=== PATIENT | male | born 1930 | race Hispanic/Latino ===

== ENCOUNTER 2017-06-25 03:42 | Inpatient (IN) | payer MEDICARE ==
[~2017-06-25 03:42] MED LIST: NACL 0.9% 1000 ML 1,000 ML ONE; TYLENOL PR ONE
[2017-06-25] MEDS ORDERED: ZOSYN/NS 4.5GM/100ML 4.5 GM/100 ML VIAL IV ONE (04:00)
[2017-06-25] MEDS ORDERED: TYLENOL PR ONE ×2 (04:02→04:03)
[2017-06-25] MEDS ORDERED: NACL 0.9% 1000 ML 1,000 ML IV ONE (04:03)
[2017-06-25] MEDS ORDERED: DIPRIVAN 10 MG/ML 1,000 MG/100 ML BOTTLE IV ONE (04:05)
[2017-06-25] MEDS ORDERED: NACL 0.9% 500 ML 500 ML IV ONE (04:11)
[2017-06-25] MEDS ORDERED: AMIDATE IV ONE (04:20)
[2017-06-25] MEDS ORDERED: QUELICIN IV ONE (04:21)
[2017-06-25] MEDS ORDERED: NACL 0.9% 1000 ML 2,000 ML IV ONE ×3 (04:22→05:34)
[2017-06-25] MEDS ORDERED: VASELINE LIP THERAPY TP PRN (04:30)
[2017-06-25] MEDS ORDERED: ARTIFICIAL TEARS OPHTH OINT OU PRN (04:30)
--- NOTE | 2017-06-25 04:41 | Emergency Department Report ---
ED Shortness of Breath HPI - General Chief Complaint: Dyspnea/Respdistress Stated Complaint: ROSCOE,RESPIRATORY Time Seen by Provider: 06/25/17 04:33 Source: EMS Mode of arrival: Stretcher Limitations: Altered Mental Status, Physical Limitation - History of Present Illness Initial Comments: Patient is a 87 years old male usp patient brought by EMS in no respiratory distress that is started this morning nursing staff report. Initial respiratory rate was 55 with an oxygen saturation of 82%. Patient is febrile 101.6 initial blood pressure or 74/42. Patient immediately intubated in the ER by me and IV fluids started empiric antibiotic Zosyn and vancomycin is also started. Large amount of gastric contents was suctioned before the ET tube and difficult time is also aspirated after the ET tube placement. MD Complaint: shortness of breath - Related Data Home Medications Medication Instructions Recorded Confirmed Last Taken Acetaminophen 325 mg PO Q4H PRN 06/25/17 06/25/17 Unknown Aspirin BABY CHEW TAB 81 mg PO DAILY 06/25/17 06/25/17 Unknown Atorvastatin Calcium 20 mg PO HS 06/25/17 06/25/17 Unknown Calcium 250-Vit D3 125 Tablet 1 tab PO BID 06/25/17 06/25/17 Unknown Finasteride 5 mg PO DAILY 06/25/17 06/25/17 Unknown HCTZ 25 mg PO DAILY 06/25/17 06/25/17 Unknown Nitroglycerin 0.4 mg SL Q5M PRN 06/25/17 06/25/17 Unknown Omeprazole 20 mg PO DAILY 06/25/17 06/25/17 Unknown Potassium Chloride 15 ml PO DAILY 06/25/17 06/25/17 Unknown Senno 8.6 mg PO HS 06/25/17 06/25/17 Unknown Tamsulosin HCl 0.4 mg PO BID 06/25/17 06/25/17 Unknown Allergies Allergy/AdvReac Type Severity Reaction Status Date / Time No Known Allergies Allergy Unverified 06/25/17 03:59 ED Review of Systems ROS: Stated complaint: ROSCOE,RESPIRATORY Other details as noted in HPI Comment: Unobtainable due to pts medical conditions ED Past Medical Hx - Past Medical History Previous Medical History?: Yes Hx Hypertension: Yes Hx GERD: Yes Hx Liver Disease: Yes (Hep. C) Hx COPD: Yes Hx Dementia: Yes Additional medical history: Benign prostatic Hyperplasia with lower UTI symptoms , Hep. C, Coronary Artery Disease - Medications Home Medications: Home Medications Medication Instructions Recorded Confirmed Last Taken Type Acetaminophen 325 mg PO Q4H PRN 06/25/17 06/25/17 Unknown History Aspirin BABY CHEW TAB 81 mg PO DAILY 06/25/17 06/25/17 Unknown History Atorvastatin Calcium 20 mg PO HS 06/25/17 06/25/17 Unknown History Calcium 250-Vit D3 125 Tablet 1 tab PO BID 06/25/17 06/25/17 Unknown History Finasteride 5 mg PO DAILY 06/25/17 06/25/17 Unknown History HCTZ 25 mg PO DAILY 06/25/17 06/25/17 Unknown History Nitroglycerin 0.4 mg SL Q5M PRN 06/25/17 06/25/17 Unknown History Omeprazole 20 mg PO DAILY 06/25/17 06/25/17 Unknown History Potassium Chloride 15 ml PO DAILY 06/25/17 06/25/17 Unknown History Senno 8.6 mg PO HS 06/25/17 06/25/17 Unknown History Tamsulosin HCl 0.4 mg PO BID 06/25/17 06/25/17 Unknown History ED Physical Exam - General Limitations: Altered Mental Status, Physical Limitation General appearance: obtunded, in distress - Head Head exam: Present: atraumatic, normocephalic - ENT ENT exam: Present: mucous membranes dry - Neck Neck exam: Present: normal inspection. Absent: tenderness, meningismus - Respiratory Respiratory exam: Present: respiratory distress, rales, decreased breath sounds. Absent: stridor, prolonged expiratory - Cardiovascular Cardiovascular Exam: Present: tachycardia - GI/Abdominal GI/Abdominal exam: Present: soft. Absent: distended, tenderness, guarding, rebound, rigid, mass, bruit, pulsatile mass - Extremities Exam Extremities exam: Present: normal inspection. Absent: normal capillary refill ( delayed capillary refill) - Back Exam Back exam: Present: normal inspection - Neurological Exam Neurological exam: Present: altered - Skin Skin exam: Present: dry, intact, cyanosis ED Course Vital Signs 06/25/17 06/25/17 06/25/17 03:32 03:45 03:46 Temperature 101.6 F H Temperature [ Intra-Procedure ] Temperature [ Post-Procedure] Temperature [ Pre-Procedure] Pulse Rate 124 H 122 H 117 H Pulse Rate [ Intra-Procedure ] Pulse Rate [ Post-Procedure] Pulse Rate [Pre -Procedure] Respiratory 57 H 50 H 46 H Rate Respiratory Rate [Intra- Procedure] Respiratory Rate [Post- Procedure] Respiratory Rate [Pre- Procedure] Blood Pressure 77/44 77/43 Blood Pressure [Intra- Procedure] Blood Pressure [Post-Procedure ] Blood Pressure [Pre-Procedure] O2 Sat by Pulse 89 86 92 Oximetry O2 Sat by Pulse Oximetry [ Intra-Procedure ] O2 Sat by Pulse Oximetry [Post -Procedure] O2 Sat by Pulse Oximetry [Pre- Procedure] 06/25/17 06/25/17 06/25/17 04:00 04:16 04:30 Temperature Temperature [ Intra-Procedure ] Temperature [ Post-Procedure] Temperature [ 101.6 F H Pre-Procedure] Pulse Rate 117 H 109 H 108 H Pulse Rate [ Intra-Procedure ] Pulse Rate [ Post-Procedure] Pulse Rate [Pre 108 H -Procedure] Respiratory 25 H 32 H 35 H Rate Respiratory Rate [Intra- Procedure] Respiratory Rate [Post- Procedure] Respiratory 35 H Rate [Pre- Procedure] Blood Pressure 90/55 67/43 85/47 Blood Pressure [Intra- Procedure] Blood Pressure [Post-Procedure ] Blood Pressure 85/47 [Pre-Procedure] O2 Sat by Pulse 95 95 93 Oximetry O2 Sat by Pulse Oximetry [ Intra-Procedure ] O2 Sat by Pulse Oximetry [Post -Procedure] O2 Sat by Pulse 93 Oximetry [Pre- Procedure] 06/25/17 06/25/17 06/25/17 04:35 04:37 04:45 Temperature Temperature [ 101.6 F H Intra-Procedure ] Temperature [ 101.6 F H Post-Procedure] Temperature [ 101.6 F H Pre-Procedure] Pulse Rate 115 H Pulse Rate [ 110 H Intra-Procedure ] Pulse Rate [ 115 H Post-Procedure] Pulse Rate [Pre 110 H -Procedure] Respiratory 29 H 36 H Rate Respiratory 29 H Rate [Intra- Procedure] Respiratory 36 H Rate [Post- Procedure] Respiratory 29 H Rate [Pre- Procedure] Blood Pressure 84/48 77/43 Blood Pressure 84/48 [Intra- Procedure] Blood Pressure 77/43 [Post-Procedure ] Blood Pressure 84/48 [Pre-Procedure] O2 Sat by Pulse 97 97 Oximetry O2 Sat by Pulse 97 Oximetry [ Intra-Procedure ] O2 Sat by Pulse 97 Oximetry [Post -Procedure] O2 Sat by Pulse 97 Oximetry [Pre- Procedure] 06/25/17 06/25/17 06/25/17 04:51 04:53 04:54 Temperature Temperature [ Intra-Procedure ] Temperature [ Post-Procedure] Temperature [ Pre-Procedure] Pulse Rate Pulse Rate [ Intra-Procedure ] Pulse Rate [ Post-Procedure] Pulse Rate [Pre -Procedure] Respiratory 50 H 50 H 50 H Rate Respiratory Rate [Intra- Procedure] Respiratory Rate [Post- Procedure] Respiratory Rate [Pre- Procedure] Blood Pressure Blood Pressure [Intra- Procedure] Blood Pressure [Post-Procedure ] Blood Pressure [Pre-Procedure] O2 Sat by Pulse Oximetry O2 Sat by Pulse Oximetry [ Intra-Procedure ] O2 Sat by Pulse Oximetry [Post -Procedure] O2 Sat by Pulse Oximetry [Pre- Procedure] 06/25/17 06/25/17 06/25/17 05:00 05:15 05:30 Temperature Temperature [ Intra-Procedure ] Temperature [ Post-Procedure] Temperature [ Pre-Procedure] Pulse Rate 111 H 106 H 107 H Pulse Rate [ Intra-Procedure ] Pulse Rate [ Post-Procedure] Pulse Rate [Pre -Procedure] Respiratory 36 H 35 H 35 H Rate Respiratory Rate [Intra- Procedure] Respiratory Rate [Post- Procedure] Respiratory Rate [Pre- Procedure] Blood Pressure 93/49 85/47 94/45 Blood Pressure [Intra- Procedure] Blood Pressure [Post-Procedure ] Blood Pressure [Pre-Procedure] O2 Sat by Pulse 96 85 91 Oximetry O2 Sat by Pulse Oximetry [ Intra-Procedure ] O2 Sat by Pulse Oximetry [Post -Procedure] O2 Sat by Pulse Oximetry [Pre- Procedure] 06/25/17 06/25/17 06/25/17 05:45 05:53 05:54 Temperature Temperature [ Intra-Procedure ] Temperature [ Post-Procedure] Temperature [ Pre-Procedure] Pulse Rate 107 H Pulse Rate [ Intra-Procedure ] Pulse Rate [ Post-Procedure] Pulse Rate [Pre -Procedure] Respiratory 35 H 34 H 34 H Rate Respiratory Rate [Intra- Procedure] Respiratory Rate [Post- Procedure] Respiratory Rate [Pre- Procedure] Blood Pressure 101/50 Blood Pressure [Intra- Procedure] Blood Pressure [Post-Procedure ] Blood Pressure [Pre-Procedure] O2 Sat by Pulse 92 Oximetry O2 Sat by Pulse Oximetry [ Intra-Procedure ] O2 Sat by Pulse Oximetry [Post -Procedure] O2 Sat by Pulse Oximetry [Pre- Procedure] 1206/25/17 06/25/17 06:00 06:15 06:57 Temperature Temperature [ Intra-Procedure ] Temperature [ Post-Procedure] Temperature [ Pre-Procedure] Pulse Rate 107 H 109 H 104 H Pulse Rate [ Intra-Procedure ] Pulse Rate [ Post-Procedure] Pulse Rate [Pre -Procedure] Respiratory 35 H 36 H 34 H Rate Respiratory Rate [Intra- Procedure] Respiratory Rate [Post- Procedure] Respiratory Rate [Pre- Procedure] Blood Pressure 104/55 104/55 104/55 Blood Pressure [Intra- Procedure] Blood Pressure [Post-Procedure ] Blood Pressure [Pre-Procedure] O2 Sat by Pulse 92 92 Oximetry O2 Sat by Pulse Oximetry [ Intra-Procedure ] O2 Sat by Pulse Oximetry [Post -Procedure] O2 Sat by Pulse Oximetry [Pre- Procedure] 06/25/17 06/25/17 06/25/17 07:01 07:15 07:30 Temperature Temperature [ Intra-Procedure ] Temperature [ Post-Procedure] Temperature [ Pre-Procedure] Pulse Rate 101 H 118 H 103 H Pulse Rate [ Intra-Procedure ] Pulse Rate [ Post-Procedure] Pulse Rate [Pre -Procedure] Respiratory 34 H 35 H 35 H Rate Respiratory Rate [Intra- Procedure] Respiratory Rate [Post- Procedure] Respiratory Rate [Pre- Procedure] Blood Pressure 79/42 109/55 75/43 Blood Pressure [Intra- Procedure] Blood Pressure [Post-Procedure ] Blood Pressure [Pre-Procedure] O2 Sat by Pulse 90 89 Oximetry O2 Sat by Pulse Oximetry [ Intra-Procedure ] O2 Sat by Pulse Oximetry [Post -Procedure] O2 Sat by Pulse Oximetry [Pre- Procedure] 06/25/17 06/25/17 06/25/17 07:45 08:01 08:15 Temperature Temperature [ Intra-Procedure ] Temperature [ Post-Procedure] Temperature [ Pre-Procedure] Pulse Rate 105 H 103 H 105 H Pulse Rate [ Intra-Procedure ] Pulse Rate [ Post-Procedure] Pulse Rate [Pre -Procedure] Respiratory 35 H 34 H 35 H Rate Respiratory Rate [Intra- Procedure] Respiratory Rate [Post- Procedure] Respiratory Rate [Pre- Procedure] Blood Pressure 94/54 90/34 82/49 Blood Pressure [Intra- Procedure] Blood Pressure [Post-Procedure ] Blood Pressure [Pre-Procedure] O2 Sat by Pulse 89 89 87 Oximetry O2 Sat by Pulse Oximetry [ Intra-Procedure ] O2 Sat by Pulse Oximetry [Post -Procedure] O2 Sat by Pulse Oximetry [Pre- Procedure] 06/25/17 06/25/17 06/25/17 08:30 08:45 11:30 Temperature 98.0 F Temperature [ Intra-Procedure ] Temperature [ Post-Procedure] Temperature [ Pre-Procedure] Pulse Rate 103 H Pulse Rate [ Intra-Procedure ] Pulse Rate [ Post-Procedure] Pulse Rate [Pre -Procedure] Respiratory 34 H Rate Respiratory Rate [Intra- Procedure] Respiratory Rate [Post- Procedure] Respiratory Rate [Pre- Procedure] Blood Pressure 96/54 Blood Pressure [Intra- Procedure] Blood Pressure [Post-Procedure ] Blood Pressure [Pre-Procedure] O2 Sat by Pulse 88 84 Oximetry O2 Sat by Pulse Oximetry [ Intra-Procedure ] O2 Sat by Pulse Oximetry [Post -Procedure] O2 Sat by Pulse Oximetry [Pre- Procedure] - Reevaluation(s) Reevaluation #1: 06/25/17 04:43 Patient improved after intubation his oxygen saturation is 96%, his respiratory rate is 26 breaths per minute. His heart rate is 110. His blood pressure now is 110/62. Patient received Zosyn, Tylenol, Protonix and IV fluids. - Central Line Placement Right Femoral Consent Obtained: emergent situation Time Out Performed: Yes Patient Placed on Monitor/Pulse Ox: Yes MD Prep: mask, gown, gloves Central Line Prep: Povidone-Iodine 1%, Chlorhexidine scrub, sterile drapes applied Local Anesthesia Used: Lidocaine 1% Amount of Anesthesia Used (mls): 5 Central Line Lumen Inserted: triple Central Line Position: good blood return, all ports aspirated, flus, sutured in place with 2-0 Dressing Applied: Tegaderm, sterile gauze/tape Patient Tolerated Procedure: well, no complications Complications: none - Intubation Time Out Performed: Yes Sedative: Etomidate Mg Given: 20 Paralytic: Succinylcholine Mg Given: 100 Laryngoscope: Martin Size: 3 Assist Device Used: Bougie ET Tube Size: 7.5 Tube Secured Location: lips Tube Placement Confirmation: visualized tube passing t, equal breath sounds bilat, no breath sounds over epi, confirmation by capnometr Patient Tolerated Procedure: well, no complications Intubation Complications: none ED Medical Decision Making - Lab Data Result diagrams: 06/25/17 04:00 06/25/17 04:00 - EKG Data -: EKG Interpreted by Me EKG shows normal: sinus rhythm Rate: tachycardia - EKG Data Interpretation: no acute changes - Radiology Data Radiology results: report reviewed Discuss the patient was Dr. Perla De La Cruz, and followed by the patient and the need to be admitted to the ICU. Dr. De La Cruz stated that she would not be able to admit the patient until the patient had CT brain and CT abdomen and pelvis. CT brain/CT abdomen and pelvis is ordered. Critical Care Time: Yes Critical care time in (mins) excluding proc time.: 75 Critical care attestation.: If time is entered above; I have spent that time in minutes in the direct care of this critically ill patient, excluding procedure time. ED Disposition Clinical Impression: Acute respiratory failure, Sepsis, Altered mental status Disposition: OP ADMIT IP TO THIS HOSP Is pt being admited?: Yes Condition: Stable
[2017-06-25 04:45] LABS: Hematocrit 48.8 % (35.5-45.6); Hemoglobin 15.8 gm/dl (11.8-15.2); Mean Corpuscular HGB Conc 32 % (32-34); Mean Corpuscular Hemoglobin 29 pg (28-32); Mean Corpuscular Volume 89 fl (84-94); Platelet Count 258 K/mm3 (140-440); Red Blood Count 5.51 M/mm3 (3.65-5.03); Red Cell Distribution Width 13.4 % (13.2-15.2)
--- NOTE | 2017-06-25 04:46 | XRay Report ---
FINAL REPORT EXAM: XR CHEST 1V AP HISTORY: possible Sepsis, ett placement TECHNIQUE: A portable supine view of the chest was submitted. There are no previous studies available for comparison. FINDINGS: The patient is intubated with the tip of the ET tube in good position 4.4 cm above the elizabeth. There is an NG tube coursing into the body of the stomach. The lungs reveal generalized emphysematous changes with diffuse interstitial prominence. Superimposed CHF cannot be excluded. There is additional patchy airspace disease in the right lung base. The heart size is normal. Pleural fluid is not seen. The bones and soft tissues do not show any acute changes. IMPRESSION: COPD. Superimposed CHF cannot be excluded. Patchy airspace disease in the right lung base. Satisfactory intubation and placement of NG tube.
[2017-06-25 04:51] LABS: White Blood Count 78.6 K/mm3 (4.5-11.0)
[2017-06-25 04:54] LABS: INR 1.2 (0.87-1.13)
[2017-06-25] MEDS ORDERED: DIPRIVAN 10 MG/ML 1,000 MG/100 ML BOTTLE IV SCH (05:00)
[2017-06-25] MEDS ORDERED: NACL 0.9% 500 ML IV SCH (05:00)
[2017-06-25] MEDS ORDERED: PROTONIX 80 MG in NACL 0.9% 100 ML IV SCH (05:00)
[2017-06-25 05:20] LABS: Albumin 2.4 g/dL (3.9-5); Bilirubin,Total 2.1 mg/dL (0.1-1.2); Calcium 8.8 mg/dL (8.4-10.2); Chloride 94.2 mmol/L (98-107); Potassium 4.1 mmol/L (3.6-5.0); Total Protein 4.9 g/dL (6.3-8.2)
[2017-06-25 05:21] LABS: ISTAT Base Excess -14; ISTAT HCO3 15.3; ISTAT PCO2 48.6 (35-45); ISTAT PH 7.107 (7.35-7.45); ISTAT PO2 230 (80-105); ISTAT SO2 100; ISTAT TCO2 17
[2017-06-25 05:34] LABS: Basophils % (Manual) 0 % (0.0-1.8); Blastocytes % (Manual) 0 %; Eosinophils % (Manual) 0 % (0.0-4.3)
[2017-06-25] MEDS: LEVOPHED DRIP 4 MG/NS 250 ML 4 MG/250 ML BAG IV SCH ×2 (05:35→12:09)
[2017-06-25 05:37] LABS: Giant Platelets Rare; Large Platelets Rare
[2017-06-25 05:44] LABS: Diff Status Complete; Platelet Clumps Rare; Platelet Estimate Consistent w Auto
[2017-06-25] MEDS ORDERED: VANCOMYCIN/NS 1 GM/250 ML 1 GM/250 ML BAG IV ONE (06:00)
[2017-06-25 06:07] LABS: Bilirubin,Urine NEG (Negative); Blood,Urine MOD (Negative); Ketones,Urine TR mg/dL (Negative); Leukocyte Esterase,Urine MOD (Negative); Nitrite,Urine NEG (Negative); Urobilinogen,Urine < 2.0 mg/dL (<2.0)
[2017-06-25 06:08] LABS: Protein,Urine >500 mg/dL (Negative); WBC,Urine > 182.0 /HPF (0.0-6.0)
--- NOTE | 2017-06-25 07:04 | Cat Scan Report ---
FINAL REPORT EXAM: CT ABDOMEN PELVIS WO CON HISTORY: ABDOMINAL PAIN TECHNIQUE: Routine axial imaging was obtained of the abdomen and pelvis without oral or IV contrast. Sagittal and coronal reconstructions were reviewed FINDINGS: The lung bases are emphysematous. There is extensive bilateral lower lobe infiltrates with additional infiltrates in the right middle lobe and lingula. Pleural fluid is not seen. Underlying congestion cannot be excluded. There is an NG tube in the stomach. The liver, gallbladder, pancreas, spleen, and adrenal glands appear normal. The kidneys show no evidence of stones or hydronephrosis. There is non specific perinephric stranding around both kidneys. The abdominal aorta reveals calcifications. There is no evidence of aneurysm. The bowel loops are normal in caliber and course. The appendix appears normal. Free air is not seen. In the pelvis the prostate gland is moderately enlarged containing calcifications. It indents the floor of the bladder. The bladder reveals generalized wall thickening suggesting bladder wall hypertrophy. There is several small dependent calcifications in the bladder measuring up to 4 millimeters in diameter. There is also air in the bladder. Whether this is from recent instrumentation or infection is uncertain. The skeletal structures reveal arthritic changes lumbar spine. IMPRESSION: Emphysema with diffuse infiltrates in both lower lobes and to lesser extent in the lingula and right middle lobe. Underlying pneumonia is suspected. Prostatic enlargement with bladder wall hypertrophy. Dependent small stones in the bladder. Air noted within the bladder. Clinical history needed whether the patient has been recently catheterized.
--- NOTE | 2017-06-25 07:06 | Cat Scan Report ---
FINAL REPORT EXAM: CT HEAD/BRAIN WO CON HISTORY: altered mental status TECHNIQUE: Routine axial imaging was obtained of the brain without IV contrast. FINDINGS: There is moderate generalized atrophy. There is diminished attenuation of the periventricular white matter compatible with chronic ischemic white matter changes. There is no evidence of acute stroke or hemorrhage. There are remote lacunar infarcts in the basal ganglia bilaterally. The ventricular system is otherwise normal in size. The posterior fossa structures reveal volume loss. The visualized sinuses are clear. The mastoid air cells are well pneumatized IMPRESSION: Moderate generalized atrophy with chronic ischemic white matter changes. No evidence of acute stroke or hemorrhage. Remote lacunar infarcts in the basal ganglia bilaterally.
[2017-06-25] MEDS ORDERED: NACL 0.9% 1000 ML 1,000 ML IV SCH (08:00)
[2017-06-25] MEDS ORDERED: ZOFRAN IV PRN (08:30)
[2017-06-25] MEDS ORDERED: TYLENOL PO PRN (08:30)
[2017-06-25 08:46] VITALS: BP 96/54
[2017-06-25] MEDS ORDERED: NACL 0.9% 1000 ML 1,000 ML ONE (08:51)
[2017-06-25] MEDS ORDERED: SIMPLE SYRUP FEEDTUBE PRN ×2 (09:36)
[2017-06-25] MEDS ORDERED: SODIUM BICARBONATE FEEDTUBE PRN (09:36)
[2017-06-25] MEDS ORDERED: PANCREAZE DR 10,500 UNIT FEEDTUBE PRN (09:36)
[2017-06-25] MEDS ORDERED: PROSCAR PO SCH (10:00)
[2017-06-25] MEDS ORDERED: BABY ASPIRIN PO SCH (10:00)
[2017-06-25] MEDS ORDERED: LOVENOX SUB-Q SCH ×2 (10:00→22:00)
[2017-06-25] MEDS ORDERED: CALCIUM VIT D3 PO SCH (10:00)
[2017-06-25] MEDS ORDERED: CITRACAL D 315MG-250 UNITS PO SCH (10:00)
[2017-06-25] MEDS ORDERED: NON-FORMULARY (Aspirin Baby Chew Tab 81 MG) PO SCH (10:00)
[2017-06-25] MEDS ORDERED: NON-FORMULARY (Omeprazole 20 MG) PO SCH (10:00)
[2017-06-25] MEDS ORDERED: NON-FORMULARY (Tamsulosin Hcl 0.4 MG) PO SCH (10:00)
[2017-06-25] MEDS ORDERED: FLOMAX PO SCH (10:00)
[2017-06-25] MEDS ORDERED: DULCOLAX PR PRN (10:00)
[2017-06-25] MEDS ORDERED: FINASTERIDE 5 MG PO SCH (10:00)
[2017-06-25] MEDS ORDERED: SODIUM BICARBONATE IV ONE ×4 (10:03→12:00)
[2017-06-25 10:52] LABS: ISTAT Base Excess -15; ISTAT HCO3 15.8; ISTAT PCO2 62.7 (35-45); ISTAT PH 7.008 (7.35-7.45); ISTAT PO2 52 (80-105); ISTAT SITE 2; ISTAT SO2 66; ISTAT TCO2 18
[2017-06-25] MEDS ORDERED: ZOSYN/NS 2.25 GM/50ML 2.25 GM/50 ML BAG IV SCH (12:00)
[2017-06-25] MEDS ORDERED: SODIUM BICARBONATE 150 MEQ in D5W 1,000 ML IV SCH (12:30)
--- NOTE | 2017-06-25 12:40 | Consultation ---
History of Present Illness - Reason for Consult Consult date: 06/25/17 acute renal failure - History of Present Illness Mr Travis is a 87 y/o M with a PMH of HTN, GERD, BPH, dementia who was brought to the [facility] ER from his NH with respiratory distress and low BP. Pt was found to have hypoxic with O2 Sats in the 80s. He was also found to have fever and hypotension. Pt on labs was found to have leukocytosis along with ARF. He was subsequently intubated and is currently on the Vent. He is on levophed at the moment. He is making some Urine. Pt is on empiric ABx. Family is at bedside. ROS: Unable to obtain as pt intubated PMH/PSH: HTN, GERD, Hep C, COPD, Dementia, BPH with chronic indewlling jones FH: NC SH: No current IVDA per family Medications and Allergies Allergies Allergy/AdvReac Type Severity Reaction Status Date / Time No Known Allergies Allergy Unverified 06/25/17 03:59 Home Medications Medication Instructions Recorded Confirmed Last Taken Type Acetaminophen 325 mg PO Q4H PRN 06/25/17 06/25/17 Unknown History Aspirin BABY CHEW TAB 81 mg PO DAILY 06/25/17 06/25/17 Unknown History Atorvastatin Calcium 20 mg PO HS 06/25/17 06/25/17 Unknown History Calcium 250-Vit D3 125 Tablet 1 tab PO BID 06/25/17 06/25/17 Unknown History Finasteride 5 mg PO DAILY 06/25/17 06/25/17 Unknown History HCTZ 25 mg PO DAILY 06/25/17 06/25/17 Unknown History Nitroglycerin 0.4 mg SL Q5M PRN 06/25/17 06/25/17 Unknown History Omeprazole 20 mg PO DAILY 06/25/17 06/25/17 Unknown History Potassium Chloride 15 ml PO DAILY 06/25/17 06/25/17 Unknown History Senno 8.6 mg PO HS 06/25/17 06/25/17 Unknown History Tamsulosin HCl 0.4 mg PO BID 06/25/17 06/25/17 Unknown History Active Meds: Active Medications Acetaminophen (Tylenol) 650 mg PO Q4H PRN PRN Reason: Pain MILD(1-3)/Fever >100.5/MATSON Albumin Human (Alburx 25% (Albumin)) 25 gm IV Q6H [facility] Stop: 06/26/17 07:01 Lipase/Protease/Amylase (Pancreaze Dr 10,500 Unit) 1 each FEEDTUBE PRN PRN PRN Reason: For Clogged Feeding Tube Aspirin (Baby Aspirin) 81 mg PO QDAY LORENA Atorvastatin Calcium (Lipitor) 20 mg PO QHS LORENA Bisacodyl (Dulcolax) 10 mg MS QDAY PRN PRN Reason: Constipation unrelieved by MOM Calcium Citrate (Citracal D 315mg-250 Units) 1 each PO BID LORENA Enoxaparin Sodium (Lovenox) 30 mg SUB-Q QDAY LORENA Last Admin: 06/25/17 11:17 Dose: 30 mg Finasteride (Proscar) 5 mg PO QDAY LORENA Hydrophilic Ointment (Vaseline Lip Therapy) 1 applic TP Q2HR PRN PRN Reason: Dry Lips Propofol (Diprivan 10 Mg/Ml) 1,000 mg in 100 mls @ 2.449 mls/hr IV TITR LORENA; 5 MCG/KG/MIN PRN Reason: Protocol Last Titration: 06/25/17 05:00 Dose: 0 mcg/kg/min, 0 mls/hr Norepinephrine (Levophed Drip 4 Mg/Ns 250 Ml) 4 mg in 250 mls @ 7.5 mls/hr IV TITR LORENA; 2 MCG/MIN PRN Reason: Protocol Last Titration: 06/25/17 12:11 Dose: 18 mcg/min, 67.5 mls/hr Sodium Chloride (Nacl 0.9% 1000 Ml) 1,000 mls @ 125 mls/hr IV DIRECT LORNEA Last Admin: 06/25/17 08:56 Dose: 125 mls/hr Piperacillin Sod/Tazobactam Sod (Zosyn/Ns 2.25 Gm/50ml) 2.25 gm in 50 mls @ 100 mls/hr IV Q6HR LORENA Sodium Bicarbonate 150 meq/ (Dextrose) 1,150 mls @ 50 mls/hr IV DIRECT LORENA Multi-Ingred Cream/Lotion/Oil/Oint (Artificial Tears Ophth Oint) 1 applic OU Q4HR PRN PRN Reason: Dry Eye(s) Ondansetron HCl (Zofran) 4 mg IV Q8H PRN PRN Reason: Nausea And Vomiting Pantoprazole (Protonix) 40 mg FEEDTUBE DAILY LORENA Simple Syrup (Simple Syrup) 15 ml FEEDTUBE PRN PRN PRN Reason: Hypoglycemia Simple Syrup (Simple Syrup) 30 ml FEEDTUBE PRN PRN PRN Reason: Hypoglycemia Sodium Bicarbonate (Sodium Bicarbonate) 325 mg FEEDTUBE PRN PRN PRN Reason: For Clogged Feeding Tube Sodium Chloride (Nacl 0.9% 500 Ml) 1 ml IV DIRECT LORENA Tamsulosin HCl (Flomax) 0.4 mg PO BID LORENA Exam - Vital Signs Vital signs: Vital Signs Pulse Resp Pulse Ox 124 H 57 H 89 06/25/17 03:32 06/25/17 03:32 06/25/17 03:32 - Physical Exam Narrative exam: GE: Intubated HEENT: Normocephalic Neck: No JVD Chest: Coarse BS BL CVS: Tachycardic Abd: Soft/BS+ Ext: No cce UG: Jones with bloody urine Neuro: Intubated Results - Lab Results 06/25/17 04:00 06/25/17 04:00 Most recent lab results Calcium 8.8 mg/dL (8.4-10.2) 06/25/17 04:00 Assessment and Plan Acute Kidney injury likely due to ATN from hypotension/Septic shock: -Unknown CKD as no BL Cr available -Making some urine -CT was -ve for hydronephrosis -Pt has chronic indewelling jones since >1 year due to BPH per family -Albumin X 4 ordered to boast up BP -Risks and benefits of HD discussed with Pt's family, per family pt did not want aggressive care and they do not want any dialysis. -Renally dose all meds and avoid nephrotoxic meds Septic Shock: Pneumonia due to infectious agent: Urinary tract infection: Leukocytosis: -On levophed. -On IVFs -On Empiric Abx -Per ICU Hypoxic respiratory failure: Acute respiratory distress syndrome: -Likely going into ARDS -Has PNA as well -Intubated on Vent -Per ICU High anion gap metabolic acidosis: -From lactic acidosis from septic shock -HCO3 give, bicarb drip ordered -Family refused HD Benign prostatic hypertophy: -No hydro on CT -has jones Hypotension: -On levophed -Per ICU Hyperlipidemia, chronic: -On statin Plan d/c [employer] at bedside. Family thinking about limits of care and will decide. Pt's condition is gravely ill. Critical Care time: 40 minutes With this note, i want to thank Dr Camilo for allowing me to participate in the care of Mr Travis. I will continue to follow him quite closely with you. Thank you for the consult. Lawrence Arenas MD Nephrology, Hypertension, Dialysis, Transplantation Phone no: [phone]
[2017-06-25] MEDS ORDERED: PROTONIX FEEDTUBE SCH (13:00)
[2017-06-25] MEDS ORDERED: ALBURX 25% (ALBUMIN) IV SCH (13:00)
[2017-06-25] MEDS ORDERED: ZOSYN/NS 4.5GM/100ML 4.5 GM/100 ML VIAL IV SCH (14:00)
[2017-06-25] MEDS ORDERED: ROBINUL IV PRN (14:35)
[2017-06-25] MEDS ORDERED: ATIVAN IV PRN (14:35)
[2017-06-25] MEDS ORDERED: MORPHINE IV PRN ×2 (14:35)
--- NOTE | 2017-06-25 14:37 | History and Physical Report ---
History of Present Illness Date of admission: 06/25/17 07:57 Chief complaint: can't breathe History of present illness: Elderly man who was brought from his [facility] with complaints of inability to breathe. Prior to shortness of breath, patient has had multiple episodes of bloody and coffee-ground emesis. The suspicion that he might have aspirated. He presented the ER and was hypoxic and febrile. He was also hypotensive. He will shortly intubated, large amount of gastric contents were suctioned from him after intubation. Since being intubated, patient has been nonresponsive, he 's been pressor dependent, he's not been on any sedation. As per his family he had made it very clear that he did not want to be maintained alive with artificial means, he had noted that he was not long for this world. And had said his goodbyes to his family did the before. Past History Past Medical History: CAD, COPD, GERD, hypertension, liver disease (hep C), other (dementia) Past Surgical History: Other (unknown) Social history: other (lives in [place]) Family history: no significant family history Medications and Allergies Allergies Allergy/AdvReac Type Severity Reaction Status Date / Time No Known Allergies Allergy Unverified 06/25/17 03:59 Home Medications Medication Instructions Recorded Confirmed Last Taken Type Acetaminophen 325 mg PO Q4H PRN 06/25/17 06/25/17 Unknown History Aspirin BABY CHEW TAB 81 mg PO DAILY 06/25/17 06/25/17 Unknown History Atorvastatin Calcium 20 mg PO HS 06/25/17 06/25/17 Unknown History Calcium 250-Vit D3 125 Tablet 1 tab PO BID 06/25/17 06/25/17 Unknown History Finasteride 5 mg PO DAILY 06/25/17 06/25/17 Unknown History HCTZ 25 mg PO DAILY 06/25/17 06/25/17 Unknown History Nitroglycerin 0.4 mg SL Q5M PRN 06/25/17 06/25/17 Unknown History Omeprazole 20 mg PO DAILY 06/25/17 06/25/17 Unknown History Potassium Chloride 15 ml PO DAILY 06/25/17 06/25/17 Unknown History Senno 8.6 mg PO HS 06/25/17 06/25/17 Unknown History Tamsulosin HCl 0.4 mg PO BID 06/25/17 06/25/17 Unknown History Active Meds: Active Medications Acetaminophen (Tylenol) 650 mg PO Q4H PRN PRN Reason: Pain MILD(1-3)/Fever >100.5/MATSON Albumin Human (Alburx 25% (Albumin)) 25 gm IV Q6H LORENA Stop: 06/26/17 07:01 Lipase/Protease/Amylase (Pancreaze Dr 10,500 Unit) 1 each FEEDTUBE PRN PRN PRN Reason: For Clogged Feeding Tube Aspirin (Baby Aspirin) 81 mg PO QDAY LORENA Atorvastatin Calcium (Lipitor) 20 mg PO QHS LORENA Bisacodyl (Dulcolax) 10 mg VA QDAY PRN PRN Reason: Constipation unrelieved by MOM Calcium Citrate (Citracal D 315mg-250 Units) 1 each PO BID LORENA Enoxaparin Sodium (Lovenox) 30 mg SUB-Q QDAY LORENA Last Admin: 06/25/17 11:17 Dose: 30 mg Finasteride (Proscar) 5 mg PO QDAY LORENA Glycopyrrolate (Robinul) 0.2 mg IV Q4H PRN PRN Reason: Secretions Hydrophilic Ointment (Vaseline Lip Therapy) 1 applic TP Q2HR PRN PRN Reason: Dry Lips Propofol (Diprivan 10 Mg/Ml) 1,000 mg in 100 mls @ 2.449 mls/hr IV TITR LORENA; 5 MCG/KG/MIN PRN Reason: Protocol Last Titration: 06/25/17 05:00 Dose: 0 mcg/kg/min, 0 mls/hr Norepinephrine (Levophed Drip 4 Mg/Ns 250 Ml) 4 mg in 250 mls @ 7.5 mls/hr IV TITR LORENA; 2 MCG/MIN PRN Reason: Protocol Last Titration: 06/25/17 12:11 Dose: 18 mcg/min, 67.5 mls/hr Sodium Chloride (Nacl 0.9% 1000 Ml) 1,000 mls @ 125 mls/hr IV DIRECT LORENA Last Admin: 06/25/17 08:56 Dose: 125 mls/hr Piperacillin Sod/Tazobactam Sod (Zosyn/Ns 2.25 Gm/50ml) 2.25 gm in 50 mls @ 100 mls/hr IV Q6HR LORENA Sodium Bicarbonate 150 meq/ (Dextrose) 1,150 mls @ 50 mls/hr IV DIRECT LORENA Lorazepam (Ativan) 2 mg IV Q1H PRN PRN Reason: anxiety/insomnia Morphine Sulfate (Morphine) 2 mg IV Q1H PRN PRN Reason: mod pain or comfort measures Morphine Sulfate (Morphine) 2 mg IV Q30MIN PRN PRN Reason: Dyspnea Multi-Ingred Cream/Lotion/Oil/Oint (Artificial Tears Ophth Oint) 1 applic OU Q4HR PRN PRN Reason: Dry Eye(s) Ondansetron HCl (Zofran) 4 mg IV Q8H PRN PRN Reason: Nausea And Vomiting Pantoprazole (Protonix) 40 mg FEEDTUBE DAILY LORENA Simple Syrup (Simple Syrup) 15 ml FEEDTUBE PRN PRN PRN Reason: Hypoglycemia Simple Syrup (Simple Syrup) 30 ml FEEDTUBE PRN PRN PRN Reason: Hypoglycemia Sodium Bicarbonate (Sodium Bicarbonate) 325 mg FEEDTUBE PRN PRN PRN Reason: For Clogged Feeding Tube Sodium Chloride (Nacl 0.9% 500 Ml) 1 ml IV DIRECT LORENA Tamsulosin HCl (Flomax) 0.4 mg PO BID LORENA Review of Systems ROS unobtainable: due to mental status Exam - Physical Exam Narrative exam: General.: Appears ill, toxic appearance HEENT: Moist mucous membranes, extraocular muscles intact, no lymphadenopathy Neck: supple Cardiac: S1-S2 heard Lungs: clear to auscultation bilaterally Abdomen: soft , nontender, nondistended, bowel sounds positive Extremities: no edema clubbing or cyanosis Skin: no rash or lesions Neurologic: Obtunded, comatose, not responsive - Constitutional Vitals: Temp Pulse Resp BP Pulse Ox 98.0 F 103 H 34 H 96/54 84 06/25/17 08:45 06/25/17 08:30 06/25/17 08:30 06/25/17 08:30 06/25/17 11:30 Results - Labs CBC & Chem 7: 06/25/17 04:00 06/25/17 04:00 Labs: Laboratory Last Values WBC 78.6 K/mm3 (4.5-11.0) H* 06/25/17 04:00 RBC 5.51 M/mm3 (3.65-5.03) H 06/25/17 04:00 Hgb 15.8 gm/dl (11.8-15.2) H 06/25/17 04:00 Hct 48.8 % (35.5-45.6) H 06/25/17 04:00 MCV 89 fl (84-94) 06/25/17 04:00 MCH 29 pg (28-32) 06/25/17 04:00 MCHC 32 % (32-34) 06/25/17 04:00 RDW 13.4 % (13.2-15.2) 06/25/17 04:00 Plt Count 258 K/mm3 (140-440) 06/25/17 04:00 Add Manual Diff Complete 06/25/17 04:00 Total Counted 200 06/25/17 04:00 Seg Neutrophils % General Maintenance Helper 06/25/17 04:00 Seg Neuts % (Manual) 85.0 % (40.0-70.0) H 06/25/17 04:00 Band Neutrophils % 10.0 % 06/25/17 04:00 Lymphocytes % (Manual) 1.0 % (13.4-35.0) L 06/25/17 04:00 Reactive Lymphs % (Man) 0 % 06/25/17 04:00 Monocytes % (Manual) 4.0 % (0.0-7.3) 06/25/17 04:00 Eosinophils % (Manual) 0 % (0.0-4.3) 06/25/17 04:00 Basophils % (Manual) 0 % (0.0-1.8) 06/25/17 04:00 Metamyelocytes % 0 % 06/25/17 04:00 Myelocytes % 0 % 06/25/17 04:00 Promyelocytes % 0 % 06/25/17 04:00 Blast Cells % 0 % 06/25/17 04:00 Nucleated RBC % Not Reportable 06/25/17 04:00 Seg Neutrophils # Man 66.8 K/mm3 (1.8-7.7) H 06/25/17 04:00 Band Neutrophils # 7.9 K/mm3 06/25/17 04:00 Lymphocytes # (Manual) 0.8 K/mm3 (1.2-5.4) L 06/25/17 04:00 Abs React Lymphs (Man) 0.0 K/mm3 06/25/17 04:00 Monocytes # (Manual) 3.1 K/mm3 (0.0-0.8) H 06/25/17 04:00 Eosinophils # (Manual) 0.0 K/mm3 (0.0-0.4) 06/25/17 04:00 Basophils # (Manual) 0.0 K/mm3 (0.0-0.1) 06/25/17 04:00 Metamyelocytes # 0.0 K/mm3 06/25/17 04:00 Myelocytes # 0.0 K/mm3 06/25/17 04:00 Promyelocytes # 0.0 K/mm3 06/25/17 04:00 Blast Cells # 0.0 K/mm3 06/25/17 04:00 WBC Morphology Not Reportable 06/25/17 04:00 Hypersegmented Neuts Not Reportable 06/25/17 04:00 Hyposegmented Neuts Not Reportable 06/25/17 04:00 Hypogranular Neuts Not Reportable 06/25/17 04:00 Smudge Cells Not Reportable 06/25/17 04:00 Toxic Granulation Not Reportable 06/25/17 04:00 Toxic Vacuolation Not Reportable 06/25/17 04:00 Dohle Bodies Not Reportable 06/25/17 04:00 Pelger-Huet Anomaly Not Reportable 06/25/17 04:00 Betty Rods Not Reportable 06/25/17 04:00 Platelet Estimate Consistent w auto 06/25/17 04:00 Clumped Platelets Rare 06/25/17 04:00 Plt Clumps, EDTA Not Reportable 06/25/17 04:00 Large Platelets Rare 06/25/17 04:00 Giant Platelets Rare 06/25/17 04:00 Platelet Satelliting Not Reportable 06/25/17 04:00 Plt Morphology Comment Not Reportable 06/25/17 04:00 RBC Morphology Not Reportable 06/25/17 04:00 Dimorphic RBCs Not Reportable 06/25/17 04:00 Polychromasia Not Reportable 06/25/17 04:00 Hypochromasia Not Reportable 06/25/17 04:00 Poikilocytosis Not Reportable 06/25/17 04:00 Anisocytosis Not Reportable 06/25/17 04:00 Microcytosis Not Reportable 06/25/17 04:00 Macrocytosis Not Reportable 06/25/17 04:00 Spherocytes Not Reportable 06/25/17 04:00 Pappenheimer Bodies Not Reportable 06/25/17 04:00 Sickle Cells Not Reportable 06/25/17 04:00 Target Cells Not Reportable 06/25/17 04:00 Tear Drop Cells Not Reportable 06/25/17 04:00 Ovalocytes Not Reportable 06/25/17 04:00 Helmet Cells Not Reportable 06/25/17 04:00 [place] Bodies Not Reportable 06/25/17 04:00 Moro Rings Not Reportable 06/25/17 04:00 Hina Cells Not Reportable 06/25/17 04:00 Bite Cells Not Reportable 06/25/17 04:00 Crenated Cell Not Reportable 06/25/17 04:00 Elliptocytes Not Reportable 06/25/17 04:00 Acanthocytes (Spur) Not Reportable 06/25/17 04:00 Rouleaux Not Reportable 06/25/17 04:00 Hemoglobin C Crystals Not Reportable 06/25/17 04:00 Schistocytes Not Reportable 06/25/17 04:00 Malaria parasites Not Reportable 06/25/17 04:00 Mateusz Bodies Not Reportable 06/25/17 04:00 Hem Pathologist Commnt Sent to pathology 06/25/17 04:00 PT 15.9 Sec. (12.2-14.9) H 06/25/17 04:00 INR 1.20 (0.87-1.13) H 06/25/17 04:00 POC ABG pH 7.008 (7.35-7.45) L 06/25/17 10:50 POC ABG pCO2 62.7 (35-45) H 06/25/17 10:50 POC ABG pO2 52 (80-105) L 06/25/17 10:50 POC ABG HCO3 15.8 06/25/17 10:50 POC ABG Total CO2 18 06/25/17 10:50 POC ABG O2 Sat 66 06/25/17 10:50 POC ABG Base Excess -15 06/25/17 10:50 VBG pH 7.212 (7.320-7.420) L 06/25/17 04:00 FiO2 100 % 06/25/17 10:50 Sodium 140 mmol/L (137-145) 06/25/17 04:00 Potassium 4.1 mmol/L (3.6-5.0) 06/25/17 04:00 Chloride 94.2 mmol/L (98-107) L 06/25/17 04:00 Carbon Dioxide 15 mmol/L (22-30) L 06/25/17 04:00 Anion Gap 35 mmol/L 06/25/17 04:00 BUN 47 mg/dL (9-20) H 06/25/17 04:00 Creatinine 2.8 mg/dL (0.8-1.5) H 06/25/17 04:00 Estimated GFR 22 ml/min 06/25/17 04:00 BUN/Creatinine Ratio 17 % 06/25/17 04:00 Glucose 181 mg/dL (75-100) H 06/25/17 04:00 Lactic Acid 6.20 mmol/L (0.7-2.0) H* 06/25/17 07:20 Calcium 8.8 mg/dL (8.4-10.2) 06/25/17 04:00 Total Bilirubin 2.10 mg/dL (0.1-1.2) H 06/25/17 04:00 AST 36 units/L (5-40) 06/25/17 04:00 ALT 28 units/L (7-56) 06/25/17 04:00 Alkaline Phosphatase 168 units/L (35-129) H 06/25/17 04:00 Total Creatine Kinase 1180 units/L (55-170) H 06/25/17 07:20 NT-Pro-B Natriuret Pep 4931 pg/mL (0-900) H 06/25/17 07:20 Total Protein 4.9 g/dL (6.3-8.2) L 06/25/17 04:00 Albumin 2.4 g/dL (3.9-5) L 06/25/17 04:00 Albumin/Globulin Ratio 1.0 % 06/25/17 04:00 Urine Color Yellow (Yellow) 06/25/17 05:30 Urine Turbidity Clear (Clear) 06/25/17 05:30 Urine pH 6.0 (5.0-7.0) 06/25/17 05:30 Ur Specific [place] 1.014 (1.003-1.030) 06/25/17 05:30 Urine Protein >500 mg/dL (Negative) 12/05/17 05:30 Urine Glucose (UA) Neg mg/dL (Negative) 06/25/17 05:30 Urine Ketones Tr mg/dL (Negative) 06/25/17 05:30 Urine Blood Mod (Negative) 06/25/17 05:30 Urine Nitrite Neg (Negative) 06/25/17 05:30 Urine Bilirubin Neg (Negative) 06/25/17 05:30 Urine Urobilinogen < 2.0 mg/dL (<2.0) 06/25/17 05:30 Ur Leukocyte Esterase Mod (Negative) 06/25/17 05:30 Urine WBC (Auto) > 182.0 /HPF (0.0-6.0) H 06/25/17 05:30 Urine RBC (Auto) 131.0 /HPF (0.0-6.0) 06/25/17 05:30 Blood Type A POSITIVE 06/25/17 04:00 Antibody Screen Negative 06/25/17 04:00 - Imaging and Cardiology Chest x-ray: image reviewed (patchy infiltrate in right lung base) Assessment and Plan Assessment and plan: 87-year-old man who presented to the hospital after multiple episodes of bloody emesis, which shortness of breath. He has been intubated for hypoxic respiratory failure and septic shock. Severe sepsis/septic shock Continue sepsis pathway, continue antibiotics UTI Follow-up urine cultures, continue antibiotics Acute hypoxic respiratory failure on mechanical ventilator Continue mechanical ventilator Aspiration pneumonia Broad-spectrum antibiotics antibiotics ARDS? Clinically patient has an ARDS picture, requiring increasing FiO2, pulmonology consult appreciated, admitted to ICU ATN/acute kidney injury Continue IV fluids, nephrology consult, pressors to support blood pressure Lactic acidosis Due to sepsis, treat underlying cause Acute blood loss anemia Transfuse to keep hemoglobin above 8, GI bleed, source of bleeding is upper GI, most likely from stomach or duodenum We'll transfuse for now, GI consult, patient is currently too unstable for endoscopy Acute metabolic encephalopathy Due to sepsis and hypotension, continue supports -Being that patient is off sedation and not responsive, I am very much concerned for anoxic brain injury, this has been discussed with the family, the a try and to decide amongst themselves what the goals of care will be. The high probability of a clinically significant, sudden or life threatening deterioration of the [cardiovascular, pulmonary] system(s) required my full and direct attention, intervention and personal management. The aggregate critical care time was [60] minutes. This time is in addition to time spent performing reported procedures but includes the following: [] Data Review and interpretation [] Patient assessment and monitoring of vital signs [] Documentation [] Medication orders and management Plan of care discussed with patient/family: Yes
--- NOTE | 2017-06-25 16:52 | Death Summary ---
Summary - Providers Consults: 06/25/17 04:30 Consult to Dietitian/Nutrition [CONS] Routine Physician Instructions: Reason For Exam: Reason for Consult: Write/Manage Tube Feeding 06/25/17 07:57 Consult to Physician [CONS] Routine Consulting Provider: LUIS NICOLE Reason For Exam: sepsis, Acute resp failure Place consult to:: answering service Notified:: yes Phone number called:: [phone] Was contact made?: Yes If yes, spoke with:: Elsa Christiansen called:: 08:23 Consult to Physician [CONS] Routine Consulting Provider: RUIZ ARENAS Reason For Exam: SHARONA Place consult to:: Dr. Arenas Notified:: yes Phone number called:: [phone] Was contact made?: Yes If yes, spoke with:: Dr. Arenas Time called:: 09:22 06/25/17 08:05 Consult to Physician [CONS] Routine Consulting Provider: LOKESH RAYO Reason For Exam: septic shock Place consult to:: Dr. Bishop Notified:: yes Phone number called:: [phone] Was contact made?: Yes If yes, spoke with:: Dr. Bishop Time called:: 09:27 06/25/17 08:08 Consult to Wound/ET Nurse [CONS] Routine Reason For Exam: wound eval Attending: MIKE TRAN MD - summary Date of admission: 06/25/17 07:57 Date of : 06/25/17 Significant findings: 87-year-old man who presented to the hospital after multiple episodes of bloody emesis, which shortness of breath. He has been intubated for hypoxic respiratory failure and septic shock. The patient was found to have aspiration pneumonia. He received pressors and antibiotics, IV fluids and IV pressors. Unfortunately despite being intubated and put on mechanical ventilator. His mentation did not improve. He was off sedation, but still unresponsive. He was treated aggressively, and plan for transfer to the ICU. But while patient' s was admitted and still waiting in the ER. His family came, family meeting was held. And his family conveyed that the patient was unaware that he was going to pass away shortly. He had stated that he did not want to be maintained on artificial measures. He Said his goodbyes all his family members today prior. And given his poor mentation, suspected anoxic brain injury, him being pressor dependence and ventilator dependent and poor likelihood of recovery. His family then elected to make him DO NOT RESUSCITATE and comfort care, shortly after the decided to withdrawal life support. Shortly after left support was withdrawn, patient shortly. Diagnoses Severe sepsis/septic shock UTI Acute hypoxic respiratory failure on mechanical ventilator Aspiration pneumonia ARDS? ATN/acute kidney injury Lactic acidosis Acute blood loss anemia GI bleed, source of bleeding is upper GI, most likely from stomach or duodenum Acute metabolic encephalopathy Comatose
[2017-06-25] MEDS ORDERED: ATORVASTATIN CALCIUM 20 MG PO SCH (22:00)
[2017-06-26] MEDS ORDERED: PROTONIX PO SCH (10:00)
== END 2017-06-25 15:00 | DRG 871 ==
LOC: ED 03:42 → CC1 07:57
PROVIDERS: ADMIT Internal Medicine; ATTEND Internal Medicine
PROC: 5A1935Z Respiratory Ventilation, Less than 24 Consecutive Hours (ICD-10-PCS; principal; 2017-06-25)
PROC: 0BH17EZ Insertion of Endotracheal Airway into Trachea, Via Natural or Artificial Opening (ICD-10-PCS; 2017-06-25)
PROC: 4A033R1 Measurement of Arterial Saturation, Peripheral, Percutaneous Approach (ICD-10-PCS; 2017-06-25)
PROC: 06HM33Z Insertion of Infusion Device into Right Femoral Vein, Percutaneous Approach (ICD-10-PCS; 2017-06-25)
PROC: B51B1ZA Fluoroscopy of Right Lower Extremity Veins using Low Osmolar Contrast, Guidance (ICD-10-PCS; 2017-06-25)
DX: A41.9 Sepsis, unspecified organism (principal); R65.21 Severe sepsis with septic shock; J96.01 Acute respiratory failure with hypoxia; J18.9 Pneumonia, unspecified organism; N17.0 Acute kidney failure with tubular necrosis; G93.41 Metabolic encephalopathy; N39.0 Urinary tract infection, site not specified; D62 Acute posthemorrhagic anemia; K92.2 Gastrointestinal hemorrhage, unspecified; J44.0 Chronic obstructive pulmonary disease with (acute) lower respiratory infection; Z79.82 Long term (current) use of aspirin; Z79.899 Other long term (current) drug therapy; K21.9 Gastro-esophageal reflux disease without esophagitis; F03.90 Unspecified dementia, unspecified severity, without behavioral disturbance, psychotic disturbance, mood disturbance, and anxiety; B19.20 Unspecified viral hepatitis C without hepatic coma; I25.10 Atherosclerotic heart disease of native coronary artery without angina pectoris; N40.0 Benign prostatic hyperplasia without lower urinary tract symptoms; E78.5 Hyperlipidemia, unspecified
CPT/HCPCS: 36415; 70450; 71010; 74176; 80053; 81001; 82140; 82271; 82550; 82803; 82805; 83880; 85007; 85025; 85610; 86850; 86900; 86901; 87040; 87086; 93005; 93010; 94002; 96361; 96365; 96366; 96368; 96372; 96375; 99292; C9113; J1650; J2543; J2704; J3370; J7030; J7070